=== PATIENT | male | born 1965 | race Caucasian/White ===

== ENCOUNTER 2016-12-28 17:50 | Emergency (ER) | payer BC ==
[2016-12-28 18:03] VITALS: BP 150/98; PULSE 65; TEMP 98.1; BMI 28.4
[2016-12-28 19:15] LABS: BASOPHIL 0.8 % (0-2.0); EOSINOPHIL 1.5 % (0-4.5); MCH 30.5 pg (25.7-33.7); MCHC 33.5 g/dl (32.0-35.9); MEAN PLT VOLUME 7.8 fl (7.5-11.1); NEUTROPHILS 62.6 % (42.8-82.8); PLATELET COUNT 195 K/MM3 (134-434); WHITE BLOOD COUNT 7.6 K/mm3 (4.0-10.8)
[2016-12-28 19:22] LABS: CPK(DFH) 150 IU/L (38-174)
[2016-12-28 19:23] LABS: ALBUMIN 4.3 g/dl (3.5-5.0); ALK PHOS 38 U/L (32-92); ANION GAP 5 (8-16); BILIRUBIN,TOTAL 0.9 mg/dl (0.2-1.0); CALCIUM 9.1 mg/dl (8.4-10.2); CO2 27 mmol/L (22-28); GLUCOSE,RANDOM 74 mg/dl (74-106); MAGNESIUM 2.1 mg/dL (1.8-2.4); SGOT/AST 25 U/L (10-42); SGPT/ALT 31 U/L (10-40); TOT PROT 6.7 g/dl (6.4-8.3)
[2016-12-28] MEDS ORDERED: SODIUM CHLORIDE 0.9% 1000 ML INFUS.BAG IV ONE (19:27)
--- NOTE | 2016-12-28 19:27 | PDOC ---
History of Present Illness - General Chief Complaint: Pain Stated Complaint: TINGLING/NUMB FINGERS, RT CHEST, RT BACK PAIN, Time Seen by Provider: 12/28/16 18:11 History Source: Patient Exam Limitations: No Limitations - History of Present Illness Initial Comments: 12/28/16 19:23 51 yo male with h/o hypothyroid here with c/o paresthesia fingers and toes. while working [employer] today. happened for 3 hours. resolved after eating banana and drinking fluids, rest. did have some chest discomfort during episode. felt anxious and worked up at the time. no sob. no leg swelling. no cough no n/f no f/c. no weakness. does have h/o herniated disc, but no new weakness. had stress test performed one year ago at [facility] which was normal. no othre complaints. Past History - Past Medical History Allergies/Adverse Reactions: Allergies Allergy/AdvReac Type Severity Reaction Status Date / Time No Known Allergies Allergy Verified 12/28/16 17:54 Home Medications: Ambulatory Orders Levothyroxine [Synthroid -] 112 mcg PO DAILY 10/16/12 GI Disorders: Yes Thyroid Disease: Yes (HYPOTHYROID) - Immunization History Td Vaccination: (2011) - Psycho/Social/Smoking Cessation Hx Anxiety: No Suicidal Ideation: No Smoking Status: No Smoking History: Current every day smoker Have you smoked in the past 12 months: Yes Number of Cigarettes Smoked Daily: 10 If you are a former smoker, when did you quit?: 1 MO AGO Information on smoking cessation initiated: Yes 'Breaking Loose' booklet given: 12/28/16 Hx Alcohol Use: (occasional) Drug/Substance Use Hx: No Substance Use Type: None Review of Systems - Review of Systems Constitutional: No: Chills, Diaphoresis, Fever Respiratory: No: Orthopnea, Shortness of Breath Cardiac (ROS): Yes: Chest Pain ABD/GI: No: Abd. Pain w/ defecation : No: Burning, Dysuria Musculoskeletal: No: Muscle Weakness Integumentary: No: Bruising Neurological: Yes: Other (tingoing, paresthesia). No: Headache, Numbness All Other Systems: Reviewed and Negative *Physical Exam - Vital Signs Last Vital Signs Temp Pulse Resp BP Pulse Ox 98.1 F 65 18 150/98 100 12/28/16 17:50 12/28/16 17:50 12/28/16 17:50 12/28/16 17:50 12/28/16 17:50 - Physical Exam General Appearance: Yes: Appropriately Dressed HEENT: positive: Normal ENT Inspection Neck: positive: Trachea midline Respiratory/Chest: positive: Lungs Clear, Normal Breath Sounds. negative: Chest Tender, Respiratory Distress Cardiovascular: positive: Regular Rhythm, Regular Rate, S1, S2. negative: Edema Vascular Pulses: Dorsalis-Pedis (R): 2+, Doralis-Pedis (L): 2+ Gastrointestinal/Abdominal: positive: Normal Bowel Sounds, Flat, Soft. negative : Tender Musculoskeletal: positive: Normal Inspection. negative: CVA Tenderness Extremity: positive: Normal Capillary Refill, Normal Inspection Integumentary: positive: Normal Color, Dry, Warm Neurologic: positive: car pusher II-XII NML intact, Fully Oriented, Normal Response, Motor Strength 5/5 Heart Score/ECG Review #1 ECG reviewed & interpreted by me at: 18:15 General ECG Interpretation: Sinus Rhythm, Normal Rate, Normal Intervals, No acute ischemic changes Compared to previous ECG there are: No significant change - ECG Intrepretation Rhythm: Regular Rhythm - [place]: Left [place] Deviation ED Treatment Course - LABORATORY CBC & Chemistry Diagram: 12/28/16 18:49 12/28/16 18:49 Medical Decision Making - Medical Decision Making 12/28/16 19:26 51 yo h/o hypothyroid her with paresthesia. differential hypothyroid, hypokalemia, electorlyte disturbance. dehydration anxiety attack. plan labs ekg trop hydration. reassess. if negative. pt with recent stress which was negative. dc home. follow up cardiology and pcp as needed. *DC/Admit/Observation/Transfer - Discharge Dispostion Condition at time of disposition: Stable
[2016-12-28 19:53] LABS: TROPONIN I (DFP) < 0.03 ng/ml (0.03-0.50)
--- NOTE | 2016-12-28 20:08 | PDOC ---
*Physical Exam - Vital Signs Last Vital Signs Temp Pulse Resp BP Pulse Ox 98.1 F 65 18 150/98 100 12/28/16 17:50 12/28/16 17:50 12/28/16 17:50 12/28/16 17:50 12/28/16 17:50 ED Treatment Course - LABORATORY CBC & Chemistry Diagram: 12/28/16 18:49 12/28/16 18:49 - ADDITIONAL ORDERS Additional order review: Laboratory Results 12/28/16 12/28/16 19:00 18:49 Sodium 135 L Potassium 4.1 Chloride 103 Carbon Dioxide 27 Anion Gap 5 L BUN 15 Creatinine 1.0 Creat Clearance w eGFR > 60 Random Glucose 74 Calcium 9.1 Magnesium 2.1 Total Bilirubin 0.9 AST 25 ALT 31 Alkaline Phosphatase 38 Creatine Kinase 150 CK-MB (CK-2) 2.0 Troponin I < 0.03 L Total Protein 6.7 Albumin 4.3 12/28/16 18:49 RBC 4.60 MCV 91.0 MCHC 33.5 RDW 13.0 MPV 7.8 Neutrophils % 62.6 Lymphocytes % 25.4 Monocytes % 9.7 Eosinophils % 1.5 Basophils % 0.8 - Medications Given in the ED: ED Medications Discontinued Medications Generic Name Dose Route Start Last Admin Trade Name Freq PRN Reason Stop Dose Admin Sodium Chloride 1,000 ml 12/28/16 19:27 12/28/16 19:29 Normal Saline - IV 12/28/16 19:28 1,000 ml ONCE ONE Administration Progress Note - Progress Note Progress Note: Care of this patient was transferred to ne from Dr. Langston at 1900 hrs. Patient is a 51-year-old male who spent several hours working a [employer] and afterward had some sensation of numbness and tingling in his hands. Patient thought it was due to low potassium is 08 some bananas and by the time he got here his symptoms had resolved. Patient also has some chest wall soreness. Patient had a workup including labs and a cardiogram all of which were negative for any acute pathology. Patient will be discharged home and follow-up with his primary care doctor. Patient's numbness and tingling most likely were secondary to the vibrations of the jackhammer and his anterior chest wall discomfort was likely secondary to muscle use of the chest wall while using the jackhammer. *DC/Admit/Observation/Transfer Diagnosis at time of Disposition: Chest wall pain Hand paresthesia Qualifiers: Laterality: bilateral Qualified Code(s): R20.2 - Paresthesia of skin - Discharge Dispostion Disposition: HOME Condition at time of disposition: Stable - Patient Instructions Additional Instructions: For the chest and back pain you can take ibuprofen or Tylenol. Return to the emergency department immediately with ANY new, persistent or worsening symptoms. Continue any medications as previously prescribed by your physician. You should follow up with your primary doctor as soon as possible regarding today's emergency department visit. . Please make sure your doctor reviews the results of your emergency evaluation. Thank you for coming to the Emergency Department today for your care. It was a pleasure to see you today. Please note that your evaluation is INCOMPLETE until you follow-up with your doctor.
--- NOTE | 2016-12-29 13:15 | EKG ---
Test Reason : Blood Pressure : / mmHG Vent. Rate : 062 BPM Atrial Rate : 062 BPM P-R Int : 188 ms QRS Dur : 082 ms QT Int : 410 ms P-R-T Axes : 026 -14 -01 degrees QTc Int : 416 ms SINUS RHYTHM POOR R WAVE PROGRESSION WHEN COMPARED WITH ECG OF 23-JUL-2015 12:09, NO SIGNIFICANT CHANGE WAS FOUND Confirmed by DANIELA CRUZ MD ([id number]) on 12/29/2016 1:14:55 PM Referred By: DR CABRERA Confirmed By:DANIELA CRUZ MD
== END 2016-12-28 20:24 | disposition home or self-care (01) ==
LOC: FER 17:50
DX: R07.89 Other chest pain (principal); R20.2 Paresthesia of skin; E03.9 Hypothyroidism, unspecified; F17.210 Nicotine dependence, cigarettes, uncomplicated
CPT/HCPCS: 36415; 80053; 82550; 82553; 83735; 84443; 84484; 85025; 93005; 99285-25

== ENCOUNTER 2020-04-21 10:26 | Emergency (ER) | payer BC | END 2020-04-21 11:13 | disposition home or self-care (01) | LOC: JVIRT 10:26 | DX: Z11.59 Encounter for screening for other viral diseases (principal) | CPT/HCPCS: C9803; G2012-GT; U0003 ==

== ENCOUNTER 2020-06-02 11:39 | Inpatient (IN) | payer BC ==
[2020-06-02] MEDS ORDERED: BAMLANIVIMAB 700 MG in SODIUM CHLORIDE 180 ML IVPB ONE ×2 (12:37→12:48)
[2020-06-02] MEDS ORDERED: ACETAMINOPHEN INJECTION 100 ML IVPB ONE (16:28)
[2020-06-02] MEDS ORDERED: ACETAMINOPHEN 1000 MG/100 ML VIAL (NON FORMULARY) IVPB ONE (16:30)
[2020-06-02 17:18] LABS: BASO % 0.2 % (0-2.0); EOS % 0.1 % (0-4.5); HEMATOCRIT 44.7 % (35.4-49); HEMOGLOBIN 15.3 GM/dL (11.7-16.9); LYMPH % 16.6 % (8-40); MCH 30.7 pg (25.7-33.7); MCHC 34.3 g/dl (32.0-35.9); MEAN CELL VOLUME 89.6 fl (80-96); MEAN PLT VOLUME 7.8 fl (7.5-11.1); MONO % 13.1 % (3.8-10.2); PLATELET COUNT 140 K/MM3 (134-434); RBC 4.99 M/mm3 (4.00-5.60); RDW 13.3 % (11.9-15.9); WHITE BLOOD COUNT 7.3 K/mm3 (4.0-10.0)
[2020-06-02 17:21] LABS: INR 1.1 (0.83-1.09); PROTHROMBIN TIME (PATIENT) 13.3 SEC (9.7-13.0)
[2020-06-02 17:24] LABS: ACTIVATED PTT 25.8 SECONDS (25.2-36.5)
[2020-06-02 17:50] LABS: ALBUMIN 3.9 g/dl (3.4-5.0); CALCIUM 8.3 mg/dL (8.5-10.1)
[2020-06-02 17:54] LABS: BILIRUBIN,DIRECT 0.1 mg/dL (0.0-0.2); CREATININE 1.2 mg/dL (0.55-1.3)
[2020-06-02 17:55] LABS: BILIRUBIN,TOTAL 0.4 mg/dL (0.2-1); TOT PROT 7.3 g/dl (6.4-8.2)
[2020-06-02] MEDS ORDERED: DEXAMETHASONE SOD PHOSPHATE 4 MG/1 ML VIAL IVPUSH ONE (18:48)
[2020-06-02] MEDS ORDERED: DEXAMETHASONE SOD PHOSPHATE 4 MG/1 ML VIAL ONE (18:54)
[2020-06-02] MEDS ORDERED: ACETAMINOPHEN 1000 MG/100 ML VIAL (NON FORMULARY) IVPB PRN (19:48)
[2020-06-02 21:24] LABS: EPI CELLS 10 /uL (0-25.1); HYALINE CASTS 2 /uL (0-3.1); PH,URINE 5.5 (5.0-8.0); URINE APPEARANCE CLOUDY; URINE BACTERIA 23 /uL (0-1359); URINE BILIRUBIN NEGATIVE (NEGATIVE); URINE COLOR YELLOW; URINE GLUCOSE (UA) NEGATIVE (NEGATIVE); URINE KETONE NEGATIVE (NEGATIVE); URINE LEUK ESTERASE NEGATIVE (NEGATIVE); URINE NITRITE NEGATIVE (NEGATIVE); URINE PROTEIN 1+ (NEGATIVE); URINE RBC 4 /uL (0-23.9); URINE UROBILINOGEN 0.2 mg/dL (0.2-1.0); URINE WBC 11 /uL (0-25.8)
[2020-06-02] MEDS ORDERED: IBUPROFEN 400 MG TABLET (FP) PO ONE (22:00)
[2020-06-02] MEDS ORDERED: ASCORBIC ACID 500 MG TABLET (FP) ONE (23:27)
[2020-06-02] MEDS ORDERED: FAMOTIDINE 20 MG TABLET ONE (23:27)
[2020-06-02] MEDS ORDERED: IBUPROFEN 600 MG TABLET (FP) PO ONE (23:28)
[2020-06-02] MEDS: FAMOTIDINE 20 MG TABLET PO SCH (23:39)
[2020-06-02] MEDS: ASCORBIC ACID 500 MG TABLET (FP) PO SCH (23:39)
[2020-06-03] MEDS: LEVOTHYROXINE NA 125 MCG TABLET (FP) PO SCH (06:57)
[2020-06-03 08:26] LABS: BASO % 0.1 % (0-2.0); HEMATOCRIT 41.1 % (35.4-49); LYMPH % 12.7 % (8-40); MCH 30.7 pg (25.7-33.7); MCHC 34.1 g/dl (32.0-35.9); MEAN PLT VOLUME 8.1 fl (7.5-11.1); MONO % 11.1 % (3.8-10.2); NEUT % 76.1 % (42.8-82.8); PLATELET COUNT 129 K/MM3 (134-434); RBC 4.56 M/mm3 (4.00-5.60); RDW 13.3 % (11.9-15.9); WHITE BLOOD COUNT 6.6 K/mm3 (4.0-10.0)
[2020-06-03 08:45] LABS: POTASSIUM 4.2 mmol/L (3.5-5.1)
[2020-06-03 08:47] LABS: ALBUMIN 3.4 g/dl (3.4-5.0); BLOOD UREA NITROGEN 27.6 mg/dL (7-18); CALCIUM 7.9 mg/dL (8.5-10.1); MAGNESIUM 2.2 mg/dL (1.8-2.4)
[2020-06-03 08:50] LABS: CREATININE 1.3 mg/dL (0.55-1.3)
[2020-06-03 08:51] LABS: PHOSPHOROUS 4.9 mg/dL (2.5-4.9)
[2020-06-03 08:52] LABS: BILIRUBIN,TOTAL 0.3 mg/dL (0.2-1); TOT PROT 6.7 g/dl (6.4-8.2)
[2020-06-03] MEDS: CHOLECALCIFEROL (VIT D3) 1,000 UNIT (25 MCG) TABLET PO SCH (11:05)
[2020-06-03] MEDS: ZINC SULFATE 220 MG CAPSULE (FP) PO SCH (11:05)
[2020-06-03] MEDS: ENOXAPARIN NA (PORCINE) 40 MG/0.4 ML DISP.SYRIN SQ SCH (11:05)
[2020-06-03] MEDS: DEXAMETHASONE SOD PHOSPHATE 4 MG/1 ML VIAL IVPUSH SCH (11:05)
[2020-06-03] MEDS: amLODIPine BESYLATE 2.5 MG TABLET (FP) PO SCH ×3 (11:06→21:45)
[2020-06-03] MEDS: ASCORBIC ACID 500 MG TABLET (FP) PO SCH ×2 (11:06→21:44)
[2020-06-03] MEDS: guaiFENesin 600 MG TABLET.ER (FP) PO SCH ×2 (11:06→21:45)
[2020-06-03] MEDS: LOSARTAN POTASSIUM 50 MG TABLET PO SCH (11:06)
[2020-06-03] MEDS: FAMOTIDINE 20 MG TABLET PO SCH ×2 (11:06→21:45)
[2020-06-03] MEDS ORDERED: REMDESIVIR 200 MG in SODIUM CHLORIDE 210 ML IVPB ONE (12:00)
[2020-06-03 12:30] LABS: ANISOCYTOSIS 0; MACROCYTOSIS 0; PLATELET ESTIMATE DECREASED
[2020-06-04] MEDS: LEVOTHYROXINE NA 125 MCG TABLET (FP) PO SCH (06:25)
[2020-06-04 09:02] LABS: BASO % 0.2 % (0-2.0); EOS % 0.1 % (0-4.5); HEMATOCRIT 40.2 % (35.4-49); HEMOGLOBIN 14.2 GM/dL (11.7-16.9); LYMPH % 18.1 % (8-40); MCH 30.9 pg (25.7-33.7); MCHC 35.2 g/dl (32.0-35.9); MEAN PLT VOLUME 7.9 fl (7.5-11.1); MONO % 13.2 % (3.8-10.2); NEUT % 68.4 % (42.8-82.8); PLATELET COUNT 143 K/MM3 (134-434); RBC 4.58 M/mm3 (4.00-5.60); RDW 13.1 % (11.9-15.9); WHITE BLOOD COUNT 8.9 K/mm3 (4.0-10.0)
[2020-06-04 09:17] LABS: POTASSIUM 4.3 mmol/L (3.5-5.1)
[2020-06-04 09:22] LABS: CALCIUM 8.1 mg/dL (8.5-10.1)
[2020-06-04 09:23] LABS: ALBUMIN 3.4 g/dl (3.4-5.0); BLOOD UREA NITROGEN 17.8 mg/dL (7-18)
[2020-06-04 09:27] LABS: BILIRUBIN,TOTAL 0.4 mg/dL (0.2-1); CREATININE 1.1 mg/dL (0.55-1.3); TOT PROT 6.6 g/dl (6.4-8.2)
[2020-06-04] MEDS: FAMOTIDINE 20 MG TABLET PO SCH ×2 (10:28→21:18)
[2020-06-04] MEDS: ENOXAPARIN NA (PORCINE) 40 MG/0.4 ML DISP.SYRIN SQ SCH (10:28)
[2020-06-04] MEDS: ASCORBIC ACID 500 MG TABLET (FP) PO SCH ×2 (10:28→21:18)
[2020-06-04] MEDS: LOSARTAN POTASSIUM 50 MG TABLET PO SCH (10:29)
[2020-06-04] MEDS: guaiFENesin 600 MG TABLET.ER (FP) PO SCH ×2 (10:29→21:18)
[2020-06-04] MEDS: CHOLECALCIFEROL (VIT D3) 1,000 UNIT (25 MCG) TABLET PO SCH (10:29)
[2020-06-04] MEDS: ZINC SULFATE 220 MG CAPSULE (FP) PO SCH (10:29)
[2020-06-04] MEDS: CODEINE SO4 30 MG TABLET PO PRN ×2 (10:30→20:04)
[2020-06-04] MEDS: DEXAMETHASONE SOD PHOSPHATE 4 MG/1 ML VIAL IVPUSH SCH (10:46)
[2020-06-04] MEDS: REMDESIVIR 100 MG in SODIUM CHLORIDE 230 ML IVPB SCH (14:00)
[2020-06-04 17:08] VITALS: BMI 30.9
[2020-06-04] MEDS: amLODIPine BESYLATE 2.5 MG TABLET (FP) PO SCH (21:18)
[2020-06-04] MEDS: CEPHALEXIN MONOHYDRATE 500 MG CAPSULE (UD) PO SCH (21:18)
[2020-06-05] MEDS: LEVOTHYROXINE NA 125 MCG TABLET (FP) PO SCH (06:15)
[2020-06-05] MEDS ORDERED: guaiFENesin 200 MG/10 ML 10 ML UNIT-DOSE CUPS PO ONE (10:15)
[2020-06-05] MEDS ORDERED: PT OWN MED DRAWER 7, Y5N ONE (10:38)
[2020-06-05] MEDS: FAMOTIDINE 20 MG TABLET PO SCH ×2 (10:43→22:01)
[2020-06-05] MEDS: CEPHALEXIN MONOHYDRATE 500 MG CAPSULE (UD) PO SCH ×2 (10:43→22:02)
[2020-06-05] MEDS: CHOLECALCIFEROL (VIT D3) 1,000 UNIT (25 MCG) TABLET PO SCH (10:43)
[2020-06-05] MEDS: CODEINE SO4 30 MG TABLET PO PRN ×2 (10:43→22:13)
[2020-06-05] MEDS: ENOXAPARIN NA (PORCINE) 40 MG/0.4 ML DISP.SYRIN SQ SCH (10:43)
[2020-06-05] MEDS: DEXAMETHASONE SOD PHOSPHATE 4 MG/1 ML VIAL IVPUSH SCH (10:43)
[2020-06-05] MEDS: ASCORBIC ACID 500 MG TABLET (FP) PO SCH ×2 (10:44→22:01)
[2020-06-05] MEDS: guaiFENesin 600 MG TABLET.ER (FP) PO SCH ×2 (10:44→22:02)
[2020-06-05] MEDS: LOSARTAN POTASSIUM 50 MG TABLET PO SCH (10:44)
[2020-06-05] MEDS: ZINC SULFATE 220 MG CAPSULE (FP) PO SCH (10:44)
[2020-06-05] MEDS: REMDESIVIR 100 MG in SODIUM CHLORIDE 230 ML IVPB SCH (10:57)
[2020-06-05 11:07] LABS: CHLORIDE 106 mmol/L (98-107); POTASSIUM 3.9 mmol/L (3.5-5.1); SODIUM 141 mmol/L (136-145)
[2020-06-05 11:13] LABS: ALBUMIN 3.3 g/dl (3.4-5.0); CALCIUM 8.1 mg/dL (8.5-10.1)
[2020-06-05 11:14] LABS: ANION GAP 8 MMOL/L (8-16); BLOOD UREA NITROGEN 21.5 mg/dL (7-18); CO2 26 mmol/L (21-32); GLUCOSE,RANDOM 146 mg/dL (74-106)
[2020-06-05 11:17] LABS: SGOT/AST 24 U/L (15-37); SGPT/ALT 58 U/L (13-61)
[2020-06-05 11:18] LABS: BILIRUBIN,TOTAL 0.4 mg/dL (0.2-1); TOT PROT 6.7 g/dl (6.4-8.2)
[2020-06-05 11:19] LABS: ALK PHOS 45 U/L (45-117)
[2020-06-05] MEDS: amLODIPine BESYLATE 2.5 MG TABLET (FP) PO SCH (22:02)
[2020-06-06] MEDS: LEVOTHYROXINE NA 125 MCG TABLET (FP) PO SCH (06:54)
[2020-06-06] MEDS ORDERED: PT OWN MED DRAWER 7, Y5N ONE (09:59)
[2020-06-06] MEDS: CHOLECALCIFEROL (VIT D3) 1,000 UNIT (25 MCG) TABLET PO SCH (10:02)
[2020-06-06] MEDS: CODEINE SO4 30 MG TABLET PO PRN (10:03)
[2020-06-06] MEDS: ASCORBIC ACID 500 MG TABLET (FP) PO SCH ×2 (10:03→21:42)
[2020-06-06] MEDS: guaiFENesin 600 MG TABLET.ER (FP) PO SCH ×2 (10:03→21:42)
[2020-06-06] MEDS: FAMOTIDINE 20 MG TABLET PO SCH ×2 (10:03→21:42)
[2020-06-06] MEDS: DEXAMETHASONE SOD PHOSPHATE 4 MG/1 ML VIAL IVPUSH SCH (10:04)
[2020-06-06] MEDS: CEPHALEXIN MONOHYDRATE 500 MG CAPSULE (UD) PO SCH ×2 (10:04→21:42)
[2020-06-06] MEDS: ENOXAPARIN NA (PORCINE) 40 MG/0.4 ML DISP.SYRIN SQ SCH (10:04)
[2020-06-06] MEDS: ZINC SULFATE 220 MG CAPSULE (FP) PO SCH (10:04)
[2020-06-06] MEDS: REMDESIVIR 100 MG in SODIUM CHLORIDE 230 ML IVPB SCH (10:54)
[2020-06-06 13:11] LABS: BASO % 0.1 % (0-2.0); EOS % 0.2 % (0-4.5); HEMATOCRIT 41.8 % (35.4-49); HEMOGLOBIN 14.3 GM/dL (11.7-16.9); LYMPH % 18.8 % (8-40); MCH 30.8 pg (25.7-33.7); MCHC 34.3 g/dl (32.0-35.9); MEAN CELL VOLUME 89.8 fl (80-96); MEAN PLT VOLUME 8.1 fl (7.5-11.1); NEUT % 65.9 % (42.8-82.8); PLATELET COUNT 174 K/MM3 (134-434); RBC 4.65 M/mm3 (4.00-5.60); RDW 13.2 % (11.9-15.9); WHITE BLOOD COUNT 8.1 K/mm3 (4.0-10.0)
[2020-06-06 13:34] LABS: POTASSIUM 4.4 mmol/L (3.5-5.1)
[2020-06-06 13:37] LABS: ALBUMIN 3.2 g/dl (3.4-5.0); BLOOD UREA NITROGEN 20.9 mg/dL (7-18)
[2020-06-06 13:40] LABS: CREATININE 0.9 mg/dL (0.55-1.3)
[2020-06-06 13:42] LABS: BILIRUBIN,TOTAL 0.5 mg/dL (0.2-1); TOT PROT 6.5 g/dl (6.4-8.2)
[2020-06-07] MEDS: LEVOTHYROXINE NA 125 MCG TABLET (FP) PO SCH (06:31)
[2020-06-07] MEDS ORDERED: guaiFENesin/CODEINE 10 ML UNIT-DOSE CUPS PO PRN (09:04)
[2020-06-07 09:49] LABS: BASO % 0.1 % (0-2.0); EOS % 0.1 % (0-4.5); HEMATOCRIT 42.5 % (35.4-49); HEMOGLOBIN 14.4 GM/dL (11.7-16.9); LYMPH % 18.7 % (8-40); MCH 30.3 pg (25.7-33.7); MCHC 33.8 g/dl (32.0-35.9); MEAN CELL VOLUME 89.5 fl (80-96); MEAN PLT VOLUME 7.8 fl (7.5-11.1); MONO % 9.6 % (3.8-10.2); NEUT % 71.5 % (42.8-82.8); PLATELET COUNT 197 K/MM3 (134-434); RBC 4.75 M/mm3 (4.00-5.60); RDW 13.3 % (11.9-15.9); WHITE BLOOD COUNT 10.2 K/mm3 (4.0-10.0)
[2020-06-07 10:11] LABS: POTASSIUM 4.3 mmol/L (3.5-5.1)
[2020-06-07 10:16] LABS: ALBUMIN 3.2 g/dl (3.4-5.0)
[2020-06-07 10:17] LABS: BLOOD UREA NITROGEN 23.3 mg/dL (7-18)
[2020-06-07 10:20] LABS: CREATININE 1.1 mg/dL (0.55-1.3)
[2020-06-07 10:21] LABS: BILIRUBIN,TOTAL 0.3 mg/dL (0.2-1)
[2020-06-07 10:22] LABS: TOT PROT 6.5 g/dl (6.4-8.2)
[2020-06-07] MEDS: ENOXAPARIN NA (PORCINE) 40 MG/0.4 ML DISP.SYRIN SQ SCH (10:40)
[2020-06-07] MEDS: ZINC SULFATE 220 MG CAPSULE (FP) PO SCH (10:40)
[2020-06-07] MEDS: DEXAMETHASONE SOD PHOSPHATE 4 MG/1 ML VIAL IVPUSH SCH (10:40)
[2020-06-07] MEDS: CHOLECALCIFEROL (VIT D3) 1,000 UNIT (25 MCG) TABLET PO SCH (10:41)
[2020-06-07] MEDS: ASCORBIC ACID 500 MG TABLET (FP) PO SCH ×2 (10:41→21:01)
[2020-06-07] MEDS: LOSARTAN POTASSIUM 50 MG TABLET PO SCH (10:50)
[2020-06-07] MEDS: FAMOTIDINE 20 MG TABLET PO SCH ×2 (10:51→21:01)
[2020-06-07] MEDS: REMDESIVIR 100 MG in SODIUM CHLORIDE 230 ML IVPB SCH (11:14)
[2020-06-07 11:27] LABS: ANISOCYTOSIS 0; HELMET CELLS 0; HOWELL-JOLLY BODIES 0; MACROCYTOSIS 0; OVALOCYTE 0; PLATELET ESTIMATE DECREASED; ROULEAU 0; SICKELED CELLS 0; TARGET CELLS 0; TEAR DROP CELLS 0; TOXIC GRANULATION 0
[2020-06-07] MEDS ORDERED: guaiFENesin/CODEINE 5 ML UNIT-DOSE CUPS PO PRN (17:57)
[2020-06-07] MEDS: amLODIPine BESYLATE 2.5 MG TABLET (FP) PO SCH (21:01)
[2020-06-08] MEDS: LEVOTHYROXINE NA 125 MCG TABLET (FP) PO SCH (06:04)
[2020-06-08 09:34] LABS: BASO % 0.1 % (0-2.0); EOS % 0.3 % (0-4.5); HEMATOCRIT 43.1 % (35.4-49); HEMOGLOBIN 14.6 GM/dL (11.7-16.9); LYMPH % 18.8 % (8-40); MCH 30.3 pg (25.7-33.7); MCHC 33.8 g/dl (32.0-35.9); MEAN CELL VOLUME 89.7 fl (80-96); MEAN PLT VOLUME 7.9 fl (7.5-11.1); MONO % 11.9 % (3.8-10.2); NEUT % 68.9 % (42.8-82.8); PLATELET COUNT 225 K/MM3 (134-434); RDW 13.2 % (11.9-15.9); WHITE BLOOD COUNT 13.6 K/mm3 (4.0-10.0)
[2020-06-08] MEDS: ZINC SULFATE 220 MG CAPSULE (FP) PO SCH (09:40)
[2020-06-08] MEDS: ENOXAPARIN NA (PORCINE) 40 MG/0.4 ML DISP.SYRIN SQ SCH (09:40)
[2020-06-08] MEDS: ASCORBIC ACID 500 MG TABLET (FP) PO SCH (09:40)
[2020-06-08] MEDS: CHOLECALCIFEROL (VIT D3) 1,000 UNIT (25 MCG) TABLET PO SCH (09:40)
[2020-06-08] MEDS: LOSARTAN POTASSIUM 50 MG TABLET PO SCH (09:40)
[2020-06-08] MEDS: DEXAMETHASONE SOD PHOSPHATE 4 MG/1 ML VIAL IVPUSH SCH (09:41)
[2020-06-08] MEDS: FAMOTIDINE 20 MG TABLET PO SCH (09:42)
[2020-06-08 09:50] LABS: CHLORIDE 107 mmol/L (98-107); SODIUM 139 mmol/L (136-145)
[2020-06-08 09:53] LABS: CALCIUM 8.4 mg/dL (8.5-10.1)
[2020-06-08 09:54] LABS: ALBUMIN 3.3 g/dl (3.4-5.0); ANION GAP 5 MMOL/L (8-16); BLOOD UREA NITROGEN 24.1 mg/dL (7-18); CO2 27 mmol/L (21-32); GLUCOSE,RANDOM 181 mg/dL (74-106)
[2020-06-08 09:57] LABS: CREATININE 1.1 mg/dL (0.55-1.3); SGOT/AST 27 U/L (15-37); SGPT/ALT 128 U/L (13-61)
[2020-06-08 09:58] LABS: BILIRUBIN,TOTAL 0.9 mg/dL (0.2-1); TOT PROT 6.6 g/dl (6.4-8.2)
[2020-06-08 10:00] LABS: ALK PHOS 46 U/L (45-117); LDH 264 U/L (87-246)
[2020-06-08 10:40] LABS: ANISOCYTOSIS 1+; MACROCYTOSIS 0; PLATELET ESTIMATE NORMAL
[2020-06-08 15:46] VITALS: BP 121/75; PULSE 59; TEMP 98.4
== END 2020-06-08 17:45 | disposition home or self-care (01) | DRG 177 ==
LOC: JER 11:39 → JERBED 19:46 → J5S 06-03 04:31
PROVIDERS: ADMIT Hospitalist
PROC: XW033E5 Introduction of Remdesivir Anti-infective into Peripheral Vein, Percutaneous Approach, New Technology Group 5 (ICD-10-PCS; principal; 2020-06-02)
DX: U07.1 COVID-19 (principal); J12.89 Other viral pneumonia; J96.01 Acute respiratory failure with hypoxia; I10 Essential (primary) hypertension; E03.9 Hypothyroidism, unspecified; D69.6 Thrombocytopenia, unspecified; R07.9 Chest pain, unspecified
CPT/HCPCS: 36415; 71045-TC-FY; 80053; 81003; 82248; 82550; 82553; 82728; 83615; 83735; 84100; 84484; 85025; 85379; 85610; 85730; 86140; 86850; 86900; 86901; 87070; 87086; 87186; 87205; 87804; 93005; 93010; 94010; 94761; 99285-25; C9399; C9803; J0131; M0239; Q0239; U0003

== ENCOUNTER 2023-02-02 20:05 | Emergency (ER) | payer OTHER, BC ==
[2023-02-02 20:18] VITALS: RESP 16; BMI 28.4
[2023-02-02 21:36] VITALS: PULSE 68; TEMP 98
[2023-02-02 23:01] VITALS: BP 146/92
[2023-02-02 23:01] LABS: HEMATOCRIT 39.9 % (35.4-49); HEMOGLOBIN 13.9 G/dL (11.7-16.9); MCH 31.7 pg (25.7-33.7); MCHC 34.8 g/dl (32.0-35.9); MEAN CELL VOLUME 91.2 fl (80-96); MEAN PLT VOLUME 6.9 fl (7.5-11.1); RBC 4.38 10^6/uL (4.00-5.60); RDW 13.5 % (11.9-15.9); WHITE BLOOD COUNT 7.4 10^3/uL (4.0-10.8)
[2023-02-02 23:05] LABS: ALBUMIN 4.3 g/dl (3.4-5.0); BLOOD UREA NITROGEN 20.3 mg/dl (7-18); CALCIUM 9.8 mg/dl (8.5-10.1); CREATININE 1.1 mg/dl (0.6-1.3); POTASSIUM 3.9 mmol/L (3.5-5.1); SGOT/AST 19.9 U/L (15-37); TOT PROT 6.5 g/dl (6.4-8.2)
[2023-02-02] MEDS ORDERED: LOSARTAN POTASSIUM 50 MG TABLET PO ONE (23:36)
[2023-02-02] MEDS ORDERED: LOSARTAN POTASSIUM 50 MG TABLET ONE (23:40)
[2023-02-02 23:46] LABS: PLATELET ESTIMATE ADEQUATE
[2023-02-03 00:22] LABS: BILIRUBIN,TOTAL 0.3 mg/dL (0.2-1)
== END 2023-02-03 01:23 | disposition home or self-care (01) ==
LOC: FER 20:05
DX: I10 Essential (primary) hypertension (principal); R07.89 Other chest pain; R51.9 Headache, unspecified
CPT/HCPCS: 36415; 80053; 84443; 84484; 85027; 93005; 99284-25